=== PATIENT | female | born 1970 | race Caucasian/White ===

== ENCOUNTER → 2017-04-20 | Outpatient (CLI) | payer OTHER ==
[~2017-04-20] MED LIST: /ADVA50050 IN; ACET65TA OR; ALBU83IN IN; ALLE25CA OR; CALC600T31 PO; CYAN1000VL IM; DIFL150T OR; FERR1TAB8 PO; FIBE0.524 PO; FLAG500T PO; FOLI1TAB4 PO; LEVA1TAB2 PO; MIRA3350 PO; OMEP40CA2 PO; PRED10TA2 OR; PROAIR INH; SENN8.6T7 PO; Thiamine Hcl PO; VENTAER IN; VITA100072 PO; VITA500T PO; VITAD1000T PO; VITMTA PO
[2017-04-20 17:06] LABS: ALBUMIN 3.4 GM/DL (3.2-5.2); ALKALINE PHOSPHATASE 68 U/L (45-117); ALT/SGPT 12 U/L (12-78); ANION GAP 9 MEQ/L (8-16); AST/SGOT 15 U/L (15-37); BILIRUBIN,TOTAL 0.3 MG/DL (0.2-1.0); BLOOD UREA NITROGEN 13 MG/DL (7-18); CALCIUM LEVEL 8.8 MG/DL (8.5-10.1); CARBON DIOXIDE LEVEL 28 MEQ/L (21-32); CHLORIDE LEVEL 109 MEQ/L (98-107); CREATININE FOR GFR 0.62 MG/DL (0.55-1.02); FREE T4 0.92 NG/DL (0.76-1.46); GLOMERULAR FILTRATION RATE > 60.0 (>58); GLUCOSE, FASTING 91 MG/DL (70-105); PERCENT SATURATION 2.8 % (13.2-45.0); POTASSIUM SERUM 4.1 MEQ/L (3.5-5.1); SODIUM LEVEL 146 MEQ/L (136-145); TOTAL IRON BINDING CAPACITY 457 UG/DL (250-450); TOTAL PROTEIN 6.8 GM/DL (6.4-8.2)
[2017-04-20 18:00] LABS: MEAN CORPUSCULAR HEMOGLOBIN 21.1 pg (27.0-33.0); MEAN CORPUSCULAR HGB CONC 28.8 g/dl (32.0-36.5); MEAN CORPUSCULAR VOLUME 73.1 fl (80.0-96.0); RED CELL DISTRIBUTION WIDTH 17.8 % (11.5-14.5); WHITE BLOOD COUNT 5.5 K/mm3 (4.0-10.0)
[2017-04-20 20:33] LABS: BASOPHILS 1 % (0-4); EOSINOPHILS 2 % (0-5); HYPOCHROMASIA 2+; POLYCHROMASIA 1+
[2017-04-20 20:34] LABS: ANISOCYTOSIS 1+; MICROCYTOSIS 2+; POIKILOCYTOSIS 1+
[2017-04-20 20:35] LABS: OVALOCYTES 1+
== END ==
LOC: M WUC 12:26
PROVIDERS: ATTEND Physician Assistant
DX: R53.83 Other fatigue (principal)

== ENCOUNTER 2017-04-24 14:23 | Emergency (ER) | payer OTHER ==
[~2017-04-24] VITALS: Ht 160 cm; Wt 77.3 kg
[2017-04-24 15:44] LABS: BASO # 0.1 10^3/uL (0.0-0.2); BASO % 1.4 % (0.0-1.0); EOS # 0.5 10^3/uL (0.0-0.50); EOS % 7.7 % (0.0-3.0); IMMATURE GRANULOCYTE % 0.2 % (0-0); LYMPH # 1.9 10^3/uL (1.5-4.5); LYMPH % 30.1 % (24.0-44.0); MEAN CORPUSCULAR HEMOGLOBIN 20.2 pg (27.0-33.0); MEAN CORPUSCULAR HGB CONC 28.7 g/dl (32.0-36.5); MEAN CORPUSCULAR VOLUME 70.5 fl (80.0-96.0); MONO # 0.6 10^3/uL (0.0-0.8); NEUTROPHILS # 3.2 10^3/uL (1.8-7.7); NEUTROPHILS % 51.6 % (36.0-66.0); PLATELET COUNT, AUTOMATED 246 10^3/uL (150-450); RED CELL DISTRIBUTION WIDTH 18.4 % (11.5-14.5); WHITE BLOOD COUNT 6.2 10^3/uL (4.0-10.0)
[2017-04-24 16:03] LABS: ANION GAP 8 MEQ/L (8-16); BLOOD UREA NITROGEN 12 MG/DL (7-18); CALCIUM LEVEL 9.3 MG/DL (8.5-10.1); CARBON DIOXIDE LEVEL 25 MEQ/L (21-32); CHLORIDE LEVEL 108 MEQ/L (98-107); CREATININE FOR GFR 0.78 MG/DL (0.55-1.02); GLOMERULAR FILTRATION RATE > 60.0 (>58); GLUCOSE, FASTING 103 MG/DL (70-105); POTASSIUM SERUM 3.8 MEQ/L (3.5-5.1); SODIUM LEVEL 141 MEQ/L (136-145)
--- NOTE | 2017-04-24 16:46 | REP ---
REASON: Chest pain. COMPARISON: Multiple, latest frontal view obtain is part of an abdominal series on 08/24/2015. FINDINGS: The technique utilized in obtaining the radiograph has magnified the cardiac silhouette and accentuated the interstitial markings. The superior mediastinal structures are midline. The cardiac silhouette is unremarkable in size, shape, and position. The diaphragmatic surfaces of the lungs are regular, and the costophrenic angles are clear. The pulmonary ji are clear. The imaged osseous structures are intact. No significant change compared to the prior exam. IMPRESSION: There is no acute cardiopulmonary disease. Signed by Jonh Jerez DO 04/24/2017 04:53 P
[2017-04-24 17:26] VITALS: BP 105/57
--- NOTE | 2017-04-25 09:27 | ECGEPIP ---
Stationary ECG Study [facility] - ED Test Date: 2017-04-24 Pat Name: LUIS ANDERSON Department: Room: - Gender: F [employer]: nicola : 1970 Requested By: Saleem Victor Order Number: [id number] Reading MD: Nena Oliveira Measurements Intervals [place] Rate: 97 P: 67 ID: [id number] QRS: 49 QRSD: 81 T: 58 QT: 345 QTc: 439 Interpretive Statements SINUS RHYTHM WITH SINUS ARRHYTHMIA NSTTW ABNORMALITY LOW VOLTAGE LIMB SIMILAR 08/31/12 Electronically Signed On 04-25-2017 9:27:27 EDT by Nena Oliveira
== END 2017-04-24 17:47 | disposition home or self-care (01) ==
LOC: M ED 14:23
DX: F43.9 Reaction to severe stress, unspecified (principal); D50.9 Iron deficiency anemia, unspecified

== ENCOUNTER → 2017-06-14 | Outpatient (REF) | payer OTHER | LOC: M LAB REF 16:12 | PROVIDERS: ATTEND Physician Assistant | DX: J02.9 Acute pharyngitis, unspecified (principal) ==